=== PATIENT | female | born 1965 | race Caucasian/White ===

== ENCOUNTER 2017-04-16 14:02 | Emergency (ER) | payer MEDICARE, MEDICAID ==
[2017-04-16 14:14] VITALS: BP 182/97
--- NOTE | 2017-04-16 14:31 | UC ---
Skin Complaint HPI - HPI Summary HPI Summary: Homeless and has many recent tick bites over the past month now has a expanding circular rash on the back on her right leg---also has very bad body aches - History of Current Complaint Chief Complaint: [facility] Time Seen by Provider: 04/16/17 14:10 Stated Complaint: TICK BITES Hx Obtained From: Patient ?: No Onset/Duration: Gradual Onset, Lasting Weeks, Still Present Timing: Constant Onset Severity: Moderate Current Severity: Moderate Pain Intensity: 8 Pain Scale Used: 0-10 Numeric Location: Diffuse Character: Redness Aggravating: Nothing Alleviating: Nothing Associated Signs & Symptoms: Positive: Rash Related History: Possible Reaction to: Insect - Allergy/Home Medications Allergies/Adverse Reactions: Allergies Allergy/AdvReac Type Severity Reaction Status Date / Time Adhesive Tape Allergy Rash Verified 04/16/17 14:14 Penicillins Allergy Rash Verified 04/16/17 14:14 Review of Systems Constitutional: Chills, Fatigue Skin: Rash - erythema migranes Eyes: Negative ENT: Negative Respiratory: Negative Cardiovascular: Negative Gastrointestinal: Negative Genitourinary: Negative Motor: Negative Neurovascular: Negative Musculoskeletal: Arthralgia, Myalgia Neurological: Negative Psychological: Negative All Other Systems Reviewed And Are Negative: Yes PMH/Surg Hx/FS Hx/Imm Hx Previously Healthy: No Endocrine History: Hypothyroidism Cardiovascular History: Hypertension GI/ History: Gastroesophageal Reflux Psychological History: Anxiety, Other Other Psychological History: insomnia - Surgical History Surgical History: Yes Surgery Procedure, Year, and Place: C SECTIONS -Xs 5 LAST ONE 1995 W/ TUBAL LIGATION - Family History Known Family History: Positive: Hypertension, Diabetes, Renal Disease - Social History Occupation: Unemployed - homeless Lives: Alone Alcohol Use: None Substance Use Type: Marijuana Substance Use Comment - Amount & Last Used: Occassioal Marijana use- Couple months Smoking Status (MU): Current Every Day Smoker Type: Cigarettes Amount Used/How Often: 1 ppd Length of Time of Smoking/Using Tobacco: 37 yrs Have You Smoked in the Last Year: Yes Household Exposure Type: Cigarettes - Immunization History Most Recent Influenza Vaccination: 2013 Most Recent Tetanus Shot: WITHIN 10 YRS Most Recent Pneumonia Vaccination: LAST FEW YEARS Physical Exam Triage Information Reviewed: Yes Appearance: Well-Appearing, No Pain Distress, Well-Nourished Vital Signs: Initial Vital Signs Temp 98.5 F 04/16/17 14:08 Pulse 95 04/16/17 14:08 Resp 16 04/16/17 14:08 BP 182/97 04/16/17 14:08 Pulse Ox 100 04/16/17 14:08 Vital Signs Reviewed: Yes Eye Exam: Normal Eyes: Positive: Conjunctiva Clear ENT Exam: Normal ENT: Positive: Normal ENT inspection, Hearing grossly normal, Pharynx normal, TMs normal. Negative: Nasal congestion, Nasal drainage, Tonsillar swelling, Tonsillar exudate, Trismus, Muffled/hoarse voice Dental Exam: Normal Neck exam: Normal Neck: Positive: Supple, Nontender, No Lymphadenopathy Respiratory Exam: Normal Respiratory: Positive: Chest non-tender, No respiratory distress, No accessory muscle use Cardiovascular Exam: Normal Cardiovascular: Positive: RRR, Brisk Capillary Refill Musculoskeletal Exam: Normal Musculoskeletal: Positive: Strength Intact, ROM Intact, No Edema Neurological Exam: Normal Neurological: Positive: Alert, Muscle Tone Normal Psychological Exam: Normal Skin Exam: Normal Course/Dx - Course Course Of Treatment: Amoxicillin, follow with pcp, - Differential Diagnoses - Skin Complaint Differential Diagnoses: Cellulitis, Impetigo, Urticaria - Diagnoses Provider Diagnoses: erythema migranes, nicotine dependent, hypertension (non adherent to medication) Discharge - Discharge Plan Condition: Stable Disposition: HOME Prescriptions: Doxycycline (Monohydrate) [Doxycycline Monohydrate] 100 mg PO BID #[id number] Patient Education Materials: Lyme Disease (ED), Tick Bite (ED) Referrals: [facility] [Outside] - 2 Weeks
== END 2017-04-16 14:34 | disposition home or self-care (01) ==
LOC: UCEAST 14:02
DX: A26.0 Cutaneous erysipeloid (principal); F17.210 Nicotine dependence, cigarettes, uncomplicated; I10 Essential (primary) hypertension; Z91.14 Patient's other noncompliance with medication regimen; Z59.0 Homelessness
CPT/HCPCS: 99212; G0463

== ENCOUNTER 2022-06-23 14:00 | Inpatient (IN) ==
[2022-06-23 17:30] LABS: ABS Eosinophils 0.1 10^3/ul (0-0.6); ABS Lymphocytes 1.1 10^3/ul (1.0-4.8); ABS Monocytes 0.6 10^3/ul (0-0.8); ABS Neutrophils 4.4 10^3/ul (1.5-7.7); Eosinophil % 2.1 %; Hematocrit 31 % (35-47); Hemoglobin 9.9 g/dL (12.0-16.0); Lymphocyte % 17.5 %; Mean Corpuscular HGB Conc 32 g/dL (31-36); Mean Corpuscular Hemoglobin 28 pg (27-31); Mean Corpuscular Volume 87 fL (80-97); Mean Platelet Volume 6.9 fL (7.4-10.4); Nucleated Red Blood Cells % 0.1; Platelet Count 244 10^3/uL (150-450); Red Blood Count 3.61 10^6 /uL (3.70-4.87); Red Cell Distribution Width 18 % (10-15); White Blood Count 6.2 10^3/uL (3.5-10.8)
[2022-06-23 17:34] LABS: INR 1.05 (0.89-1.11)
[2022-06-23 18:03] LABS: Albumin 3.2 g/dL (3.2-5.2); Calcium 8.3 mg/dL (8.6-10.3); Globulin 3.1 g/dL (2-4); Total Bilirubin 0.3 mg/dL (0.2-1.0); Total Protein 6.3 g/dL (6.4-8.9); eGFR CKD-EPI 35.8 (>60)
[2022-06-23] MEDS ORDERED: Furosemide 40 mg/4 ml IV VIAL IV SLOW PU ONE (18:40)
[2022-06-23] MEDS ORDERED: Albuterol/Ipratropium NEB.SOL (2.5/0.5 MG) 3 ML NEB.SOLN INH ONE (18:59)
[2022-06-23 19:06] LABS: High Sensitivity Troponin 1 Hr 52 pg/mL (<15)
[2022-06-23 19:37] LABS: HIV 4th Generation Nonreactive (Nonreactive)
[2022-06-23] MEDS ORDERED: Albuterol 2.5mg/3 ml (0.083%) NEB.SOLN INH PRN (19:45)
[2022-06-23 20:00] LABS: Hepatitis C Antibody Negative (Negative)
[2022-06-23] MEDS ORDERED: Ondansetron 4 mg VIAL 2 MG/ML 2 ml VIAL IV PRN (20:30)
[2022-06-23 20:32] LABS: C Reactive Protein 6.31 mg/L (<8.01); Magnesium 1.7 mg/dL (1.9-2.7)
[2022-06-23 21:09] LABS: Urine Appearance Clear; Urine Bilirubin Negative (Negative); Urine Blood 2+ (Negative); Urine Color Colorless; Urine Glucose Negative (Negative); Urine Ketones Negative (Negative); Urine Nitrite Negative (Negative); Urine Protein 1+(30 mg/dL) (Negative); Urine Specific Gravity 1.004 (1.002-1.030); Urine Urobilinogen Negative (Negative)
[2022-06-23] MEDS ORDERED: Albuterol HFA INHALER 8 gm MDI INH PRN (21:11)
[2022-06-23 21:13] LABS: Urine Bacteria Absent (Absent); Urine Red Blood Cell 1+(3-5/hpf) (Absent); Urine Squamous Epithelial Cell Present (Absent); Urine White Blood Cell Trace(0-5/hpf) (Absent)
[2022-06-23] MEDS ORDERED: Furosemide 20 mg/2 ml IV VIAL IV SLOW PU ONE (22:46)
[2022-06-24] MEDS: Mometasone/Formoter 200/5 MDI INH SCH ×3 (06:57→19:35)
[2022-06-24 07:04] LABS: ABS Basophils 0.1 10^3/ul (0-0.2); ABS Eosinophils 0.2 10^3/ul (0-0.6); ABS Monocytes 0.5 10^3/ul (0-0.8); ABS Neutrophils 3.1 10^3/ul (1.5-7.7); Eosinophil % 3.6 %; Hematocrit 30 % (35-47); Hemoglobin 9.4 g/dL (12.0-16.0); Lymphocyte % 20.8 %; Mean Corpuscular HGB Conc 32 g/dL (31-36); Mean Corpuscular Hemoglobin 27 pg (27-31); Mean Corpuscular Volume 86 fL (80-97); Mean Platelet Volume 7.1 fL (7.4-10.4); Nucleated Red Blood Cells % 0.1; Platelet Count 238 10^3/uL (150-450); Red Blood Count 3.46 10^6 /uL (3.70-4.87); Red Cell Distribution Width 18 % (10-15); White Blood Count 4.9 10^3/uL (3.5-10.8)
[2022-06-24 07:46] LABS: Albumin 2.9 g/dL (3.2-5.2); Calcium 8.1 mg/dL (8.6-10.3); Direct Bilirubin 0.1 mg/dL (0.03-0.18); Indirect Bilirubin 0.2 mg/dL (0.3-1.0); Potassium 4.6 mmol/L (3.5-5.0); Total Bilirubin 0.3 mg/dL (0.2-1.0); Total Protein 5.9 g/dL (6.4-8.9); eGFR CKD-EPI 40.8 (>60)
[2022-06-24] MEDS ORDERED: hydrALAZINE 20 mg/ml 1 ML Vial IV IV SLOW PU ONE (07:51)
[2022-06-24] MEDS ORDERED: Furosemide 40 mg/4 ml IV VIAL IV SLOW PU ONE (08:00)
[2022-06-24 08:01] LABS: TSH Ultra Thyroid Stim Horm 3.63 mcIU/mL (0.34-5.60)
[2022-06-24] MEDS: Enoxaparin 40 MG/0.4 ML SYR SUBCUT SCH (08:14)
[2022-06-24] MEDS ORDERED: Labetalol IV 5 MG/ML 20 ml VIAL IV PUSH ONE (08:58)
[2022-06-24] MEDS ORDERED: Magnesium Sulfate 2 gm BAG 2 GM/50 ML BAG IVPB ONE (10:57)
[2022-06-24] MEDS ORDERED: Albuterol/Ipratropium NEB.SOL (2.5/0.5 MG) 3 ML NEB.SOLN INH SCH (11:00)
[2022-06-24] MEDS: Albuterol/Ipratropium NEB.SOL (2.5/0.5 MG) 3 ML NEB.SOLN INH SCH ×4 (11:10→23:13)
[2022-06-24 11:11] LABS: Folate 10.21 ng/mL (5.90-24.80)
[2022-06-24] MEDS ORDERED: Albuterol/Ipratropium NEB.SOL (2.5/0.5 MG) 3 ML NEB.SOLN ONE (11:17)
[2022-06-24] MEDS: Bumetanide IV 10 MG in Premix IV 0 ML IV SCH ×2 (11:51→17:35)
[2022-06-24 11:52] LABS: Urine Appearance Clear; Urine Bilirubin Negative (Negative); Urine Blood 2+ (Negative); Urine Color Straw; Urine Glucose Negative (Negative); Urine Ketones Negative (Negative); Urine Nitrite Negative (Negative); Urine Protein 1+(30 mg/dL) (Negative); Urine Specific Gravity 1.008 (1.002-1.030); Urine Urobilinogen Negative (Negative)
[2022-06-24 12:00] LABS: Urine Creatinine Concentration 27.6 mg/dL
[2022-06-24 12:10] LABS: Urine Bacteria Absent (Absent); Urine Red Blood Cell 1+(3-5/hpf) (Absent); Urine White Blood Cell Trace(0-5/hpf) (Absent)
[2022-06-24 14:28] LABS: Magnesium 2.4 mg/dL (1.9-2.7); eGFR CKD-EPI 36.3 (>60)
[2022-06-24] MEDS: methylPREDNISolone SOD SUCC 40 mg/ml 1 ml VIAL IV SCH (16:37)
[2022-06-24 16:59] LABS: Albumin 2.8 g/dL (3.2-5.2); Globulin 2.9 g/dL (2-4); Potassium 4.5 mmol/L (3.5-5.0); Total Bilirubin 0.3 mg/dL (0.2-1.0); Total Protein 5.7 g/dL (6.4-8.9); eGFR CKD-EPI 29.3 (>60)
[2022-06-24] MEDS: cefTRIAXone 1 gm/50 mL D5W 1 GM/50 ML BAG IV SCH (20:27)
[2022-06-24] MEDS: Azithromycin 500 mg/250 ml NS 500 MG/250 ML BAG IVPB SCH (20:27)
[2022-06-24] MEDS: hydrALAZINE 20 mg/ml 1 ML Vial IV IV SLOW PU PRN (20:39)
[2022-06-25] MEDS: Albuterol/Ipratropium NEB.SOL (2.5/0.5 MG) 3 ML NEB.SOLN INH SCH ×6 (03:56→23:24)
[2022-06-25] MEDS: methylPREDNISolone SOD SUCC 40 mg/ml 1 ml VIAL IV SCH (04:31)
[2022-06-25 04:34] LABS: ABS Lymphocytes 0.6 10^3/ul (1.0-4.8); ABS Monocytes 0.3 10^3/ul (0-0.8); ABS Neutrophils 6.3 10^3/ul (1.5-7.7); Eosinophil % 0.1 %; Hematocrit 30 % (35-47); Hemoglobin 9.4 g/dL (12.0-16.0); Lymphocyte % 7.9 %; Mean Corpuscular HGB Conc 32 g/dL (31-36); Mean Corpuscular Hemoglobin 27 pg (27-31); Mean Corpuscular Volume 85 fL (80-97); Platelet Count 254 10^3/uL (150-450); Red Blood Count 3.49 10^6 /uL (3.70-4.87); Red Cell Distribution Width 18 % (10-15); White Blood Count 7.1 10^3/uL (3.5-10.8)
[2022-06-25 05:14] LABS: Calcium 7.6 mg/dL (8.6-10.3); Calcium 8.1 mg/dL (8.6-10.3); Magnesium 1.9 mg/dL (1.9-2.7); Potassium 4.5 mmol/L (3.5-5.0); Potassium 4.7 mmol/L (3.5-5.0); eGFR CKD-EPI 35.3 (>60)
[2022-06-25] MEDS: hydrALAZINE 20 mg/ml 1 ML Vial IV IV SLOW PU PRN (05:39)
[2022-06-25] MEDS ORDERED: Metoprolol Tartrate 5 mg VIAL 5 ml VIAL (1 mg/ml) IV ONE (06:32)
[2022-06-25] MEDS ORDERED: Metoprolol Tartrate 5 mg VIAL 5 ml VIAL (1 mg/ml) ONE (06:35)
[2022-06-25] MEDS: Mometasone/Formoter 200/5 MDI INH SCH ×2 (07:54→18:59)
[2022-06-25] MEDS: Enoxaparin 40 MG/0.4 ML SYR SUBCUT SCH (09:01)
[2022-06-25] MEDS: cefTRIAXone 1 gm/50 mL D5W 1 GM/50 ML BAG IV SCH (17:18)
[2022-06-25] MEDS: Azithromycin 500 mg/250 ml NS 500 MG/250 ML BAG IVPB SCH (17:18)
[2022-06-26 04:36] LABS: ABS Eosinophils 0.1 10^3/ul (0-0.6); ABS Lymphocytes 1.3 10^3/ul (1.0-4.8); ABS Monocytes 0.8 10^3/ul (0-0.8); ABS Neutrophils 6.7 10^3/ul (1.5-7.7); Eosinophil % 0.6 %; Hematocrit 29 % (35-47); Lymphocyte % 14.6 %; Mean Corpuscular HGB Conc 32 g/dL (31-36); Mean Corpuscular Hemoglobin 27 pg (27-31); Mean Corpuscular Volume 85 fL (80-97); Platelet Count 264 10^3/uL (150-450); Red Blood Count 3.35 10^6 /uL (3.70-4.87); Red Cell Distribution Width 18 % (10-15)
[2022-06-26] MEDS: Albuterol/Ipratropium NEB.SOL (2.5/0.5 MG) 3 ML NEB.SOLN INH SCH ×2 (04:54→07:31)
[2022-06-26 05:17] LABS: Magnesium 1.9 mg/dL (1.9-2.7); eGFR CKD-EPI 32.7 (>60)
[2022-06-26 05:22] LABS: Potassium 5.1 mmol/L (3.5-5.0)
[2022-06-26] MEDS: Mometasone/Formoter 200/5 MDI INH SCH ×2 (07:31→18:34)
[2022-06-26] MEDS ORDERED: Albuterol/Ipratropium NEB.SOL (2.5/0.5 MG) 3 ML NEB.SOLN INH PRN (07:36)
[2022-06-26] MEDS: Enoxaparin 40 MG/0.4 ML SYR SUBCUT SCH (08:56)
[2022-06-26 16:47] LABS: Calcium 8.4 mg/dL (8.6-10.3); eGFR CKD-EPI 44.4 (>60)
[2022-06-26 16:48] LABS: Potassium 5.5 mmol/L (3.5-5.0)
[2022-06-26] MEDS ORDERED: Dextrose 50% Syringe 50 ml 25 GM/50 ML SYRINGE IV PUSH ONE ×2 (17:37→17:45)
[2022-06-26] MEDS ORDERED: CALCIUM GLUCONATE 1GM/50ML NS 1 GM/50 ML BAG IV ONE (17:38)
[2022-06-26] MEDS: cefTRIAXone 1 gm/50 mL D5W 1 GM/50 ML BAG IV SCH (17:42)
[2022-06-26] MEDS: Azithromycin 500 mg/250 ml NS 500 MG/250 ML BAG IVPB SCH (17:47)
[2022-06-26 21:23] LABS: Calcium 8.4 mg/dL (8.6-10.3)
[2022-06-26 21:26] LABS: Potassium 5.9 mmol/L (3.5-5.0)
[2022-06-26 21:29] LABS: eGFR CKD-EPI 50.4 (>60)
[2022-06-26] MEDS ORDERED: Furosemide 40 mg/4 ml IV VIAL IV SLOW PU ONE (22:03)
[2022-06-26] MEDS: SODIUM ZIRCONIUM CYCLOSILICATE 10 GM PACKET PO SCH (22:20)
[2022-06-26 22:24] LABS: Phosphorus 3.6 mg/dL (2.5-5.0)
[2022-06-27 01:51] LABS: Calcium 8.4 mg/dL (8.6-10.3)
[2022-06-27 01:56] LABS: eGFR CKD-EPI 50.4 (>60)
[2022-06-27 01:59] LABS: Potassium 5.5 mmol/L (3.5-5.0)
[2022-06-27 05:48] LABS: ABS Lymphocytes 1.1 10^3/ul (1.0-4.8); ABS Monocytes 0.7 10^3/ul (0-0.8); ABS Neutrophils 6.3 10^3/ul (1.5-7.7); Eosinophil % 0.4 %; Hematocrit 30 % (35-47); Hemoglobin 9.3 g/dL (12.0-16.0); Lymphocyte % 13.9 %; Mean Corpuscular HGB Conc 31 g/dL (31-36); Mean Corpuscular Hemoglobin 26 pg (27-31); Mean Corpuscular Volume 85 fL (80-97); Mean Platelet Volume 6.9 fL (7.4-10.4); Platelet Count 271 10^3/uL (150-450); Red Blood Count 3.53 10^6 /uL (3.70-4.87); Red Cell Distribution Width 18 % (10-15); White Blood Count 8.2 10^3/uL (3.5-10.8)
[2022-06-27 06:06] LABS: Calcium 8.5 mg/dL (8.6-10.3)
[2022-06-27 06:08] LABS: Potassium 5.2 mmol/L (3.5-5.0)
[2022-06-27] MEDS: Mometasone/Formoter 200/5 MDI INH SCH ×2 (07:30→20:13)
[2022-06-27] MEDS: Enoxaparin 40 MG/0.4 ML SYR SUBCUT SCH (09:25)
[2022-06-27] MEDS ORDERED: Iron Sucrose 200 MG in NS 0.9% 100 ml BAG 100 ML IVPB ONE (11:00)
[2022-06-27] MEDS: SODIUM ZIRCONIUM CYCLOSILICATE 10 GM PACKET PO SCH ×3 (11:20→21:04)
[2022-06-27] MEDS: cefTRIAXone 1 gm/50 mL D5W 1 GM/50 ML BAG IV SCH (18:40)
[2022-06-27 18:55] LABS: Calcium 8.4 mg/dL (8.6-10.3); Potassium 4.9 mmol/L (3.5-5.0)
[2022-06-27 19:00] LABS: eGFR CKD-EPI 51.4 (>60)
[2022-06-27] MEDS: Azithromycin 500 mg/250 ml NS 500 MG/250 ML BAG IVPB SCH (19:55)
[2022-06-28 06:11] LABS: ABS Lymphocytes 1.1 10^3/ul (1.0-4.8); ABS Monocytes 0.7 10^3/ul (0-0.8); ABS Neutrophils 5.9 10^3/ul (1.5-7.7); Eosinophil % 0.3 %; Hematocrit 31 % (35-47); Hemoglobin 9.7 g/dL (12.0-16.0); Lymphocyte % 14.8 %; Mean Corpuscular HGB Conc 31 g/dL (31-36); Mean Corpuscular Hemoglobin 27 pg (27-31); Mean Corpuscular Volume 86 fL (80-97); Mean Platelet Volume 7.1 fL (7.4-10.4); Platelet Count 300 10^3/uL (150-450); Red Blood Count 3.61 10^6 /uL (3.70-4.87); Red Cell Distribution Width 18 % (10-15); White Blood Count 7.8 10^3/uL (3.5-10.8)
[2022-06-28 06:29] LABS: Calcium 7.8 mg/dL (8.6-10.3); Potassium 4.5 mmol/L (3.5-5.0)
[2022-06-28 06:35] LABS: eGFR CKD-EPI 58.9 (>60)
[2022-06-28] MEDS: Mometasone/Formoter 200/5 MDI INH SCH ×2 (07:46→19:13)
[2022-06-28] MEDS ORDERED: DOBUTamine 2000 MCG/ML IVPREMX 500 MG/250 ML BAG IV ONE (08:05)
[2022-06-28] MEDS ORDERED: Metoprolol Tartrate 5 mg VIAL 5 ml VIAL (1 mg/ml) ONE (08:05)
[2022-06-28] MEDS ORDERED: Atropine 0.1 MG/ML 10 ml SYR (1 mg) ONE (08:05)
[2022-06-28] MEDS: Enoxaparin 40 MG/0.4 ML SYR SUBCUT SCH (10:18)
[2022-06-28] MEDS: cefTRIAXone 1 gm/50 mL D5W 1 GM/50 ML BAG IV SCH (18:26)
[2022-06-29] MEDS: Mometasone/Formoter 200/5 MDI INH SCH ×2 (07:12→20:49)
[2022-06-29 07:30] LABS: ABS Basophils 0.1 10^3/ul (0-0.2); ABS Eosinophils 0.2 10^3/ul (0-0.6); ABS Lymphocytes 1.5 10^3/ul (1.0-4.8); ABS Monocytes 0.6 10^3/ul (0-0.8); ABS Neutrophils 3.7 10^3/ul (1.5-7.7); Eosinophil % 3.3 %; Hematocrit 32 % (35-47); Lymphocyte % 24.5 %; Mean Corpuscular HGB Conc 31 g/dL (31-36); Mean Corpuscular Hemoglobin 27 pg (27-31); Mean Corpuscular Volume 88 fL (80-97); Mean Platelet Volume 6.9 fL (7.4-10.4); Platelet Count 302 10^3/uL (150-450); Red Blood Count 3.67 10^6 /uL (3.70-4.87); Red Cell Distribution Width 18 % (10-15)
[2022-06-29 07:49] LABS: Calcium 7.8 mg/dL (8.6-10.3); Magnesium 1.7 mg/dL (1.9-2.7); Potassium 4.8 mmol/L (3.5-5.0); eGFR CKD-EPI 55.2 (>60)
[2022-06-29] MEDS ORDERED: Iron Sucrose 200 MG in NS 0.9% 100 ml BAG 100 ML IVPB ONE (09:00)
[2022-06-29] MEDS: Enoxaparin 40 MG/0.4 ML SYR SUBCUT SCH (09:44)
[2022-06-29] MEDS ORDERED: Bumetanide IV 0.25 MG/ML 4 ml VIAL (1 mg) SLOW PUSH ONE (12:01)
[2022-06-30 07:00] LABS: Calcium 8.3 mg/dL (8.6-10.3); Magnesium 1.9 mg/dL (1.9-2.7); eGFR CKD-EPI 61.6 (>60)
[2022-06-30] MEDS: Mometasone/Formoter 200/5 MDI INH SCH ×2 (07:25→19:16)
[2022-06-30 07:43] LABS: Potassium 5.2 mmol/L (3.5-5.0)
[2022-06-30] MEDS ORDERED: Bumetanide IV 0.25 MG/ML 4 ml VIAL (1 mg) SLOW PUSH ONE (08:25)
[2022-06-30] MEDS: Enoxaparin 40 MG/0.4 ML SYR SUBCUT SCH (09:29)
[2022-06-30 13:05] LABS: Blood Urea Nitrogen 29 mg/dL (6-24); CO2 Carbon Dioxide 40 mmol/L (22-32); Calcium 8.5 mg/dL (8.6-10.3); Chloride 99 mmol/L (101-111); Glucose 89 mg/dL (70-100); Sodium 138 mmol/L (135-145); eGFR CKD-EPI 59.5 (>60)
[2022-06-30 13:10] LABS: Potassium 5.1 mmol/L (3.5-5.0)
[2022-06-30 17:41] LABS: PCO2 Arterial 59 mmHg (35-45); PO2 Arterial 78 mmHg (80-100)
[2022-07-01] MEDS: Mometasone/Formoter 200/5 MDI INH SCH (07:02)
[2022-07-01 07:43] LABS: Blood Urea Nitrogen 39 mg/dL (6-24); CO2 Carbon Dioxide 30 mmol/L (22-32); Calcium 8.3 mg/dL (8.6-10.3); Chloride 102 mmol/L (101-111); Glucose 82 mg/dL (70-100); Sodium 138 mmol/L (135-145); eGFR CKD-EPI 53.5 (>60)
[2022-07-01 07:44] LABS: Anion Gap 6 mmol/L (2-11); Potassium 5.3 mmol/L (3.5-5.0)
[2022-07-01] MEDS: Enoxaparin 40 MG/0.4 ML SYR SUBCUT SCH (08:37)
[2022-07-01] MEDS ORDERED: Bumetanide IV 0.25 MG/ML 4 ml VIAL (1 mg) SLOW PUSH SCH (09:00)
[2022-07-01 09:18] LABS: ALT 13 U/L (7-52); AST 13 U/L (13-39); Albumin 2.7 g/dL (3.2-5.2); Alkaline Phosphatase 53 U/L (35-149); Globulin 2.6 g/dL (2-4); Total Protein 5.3 g/dL (6.4-8.9)
[2022-07-01 11:08] VITALS: BP 116/66
[2022-07-02] MEDS ORDERED: Patiromer POWDER 8.4 GM PAK PO SCH (10:38)
== END 2022-07-01 13:35 | disposition home or self-care (01) | DRG 291 ==
LOC: ED 14:00 → SUATTDRO 19:41 → EDHOLD 19:41 → MEDTELE 23:29 → ICU 06-24 10:37 → MEDTELE 06-28 22:18
PROVIDERS: ADMIT Internal Medicine; ATTEND Internal Medicine